=== PATIENT | female | born 1960 | race Caucasian/White ===

== ENCOUNTER 2022-02-16 06:42 | Inpatient (IN) ==
[2022-02-16] MEDS ORDERED: Morphine Sulfate 2 MG/ML SYRINGE IVP ONE ×2 (06:59→09:03)
[2022-02-16] MEDS ORDERED: 0.9 % Sodium Chloride 500 ML IVC ONE (06:59)
[2022-02-16] MEDS ORDERED: Ondansetron 4 MG/2 ML VIAL IVP ONE ×2 (06:59→09:03)
[2022-02-16] MEDS ORDERED: Isovue-370 500 ML BOTTLE IVP ONE ×4 (07:00→21:34)
[2022-02-16 07:24] LABS: Basophils % 0.3 %; Eosinophils % 0.1 %; Hematocrit 31.1 % (35.3-44.9); Hemoglobin 10.6 g/dL (11.5-15.4); Immature Granulocytes % 1.5 % (0-4); Lymphocytes % 7.9 %; Mean Corpuscular HGB Conc 34.1 g/dL (31.6-35.5); Mean Corpuscular Hemoglobin 31.5 pg (28.0-33.3); Mean Corpuscular Volume 92.3 fL (83.0-100.0); Mean Platelet Volume 8.5 fL (9.4-12.4); Monocytes % 6.3 %; Platelet Count 369 K/mcL (140-400); Red Blood Count 3.37 M/mcL (3.82-4.97); Red Cell Distribution Width 13.5 % (11.5-14.5); Segmented Neutrophils % 83.9 %; White Blood Count 15.8 K/mcL (4.3-11.1)
[2022-02-16 07:29] LABS: Basophils # 0.1 K/mcL (0.0-0.2); Lymphocytes # 1.3 K/mcL (0.6-4.6); Neutrophils # 13.3 K/mcL (1.6-8.9)
[2022-02-16 07:42] LABS: BUN/Creatinine Ratio 13 (6-26); Blood Urea Nitrogen 12 mg/dL (8-23); Calcium 8.6 mg/dL (8.6-10.3); Carbon Dioxide 23 mEq/L (23-29); Chloride 90 mEq/L (98-107); Creatine Kinase 88 Units/L (30-223); Glucose 139 mg/dL (70-105); Osmolality,Calculated 260 (280-300); Potassium 3.5 mEq/L (3.5-5.1); Sodium 124 mEq/L (136-145); eGFR For African Americans > 60 (> 60); eGFR For Non-African Americans > 60 (> 60)
[2022-02-16] MEDS ORDERED: 0.9 % Sodium Chloride 1,000 ML IVC ONE (08:27)
[2022-02-16 11:06] LABS: BUN/Creatinine Ratio 13 (6-26); Blood Urea Nitrogen 9 mg/dL (8-23); Calcium 7.8 mg/dL (8.6-10.3); Carbon Dioxide 21 mEq/L (23-29); Chloride 99 mEq/L (98-107); Glucose 126 mg/dL (70-105); Osmolality,Calculated 268 (280-300); Potassium 3.6 mEq/L (3.5-5.1); Sodium 129 mEq/L (136-145); eGFR For African Americans > 60 (> 60); eGFR For Non-African Americans > 60 (> 60)
[2022-02-16] MEDS ORDERED: Ibuprofen 800 MG TABLET PO PRN (11:18)
[2022-02-16 11:42] LABS: Ethanol < 10 mg/dL (Less than 10); Magnesium 1.7 mg/dL (1.6-2.6)
[2022-02-16] MEDS ORDERED: Nicotine 21 MG PATCH.TD24 TD SCH (12:45)
[2022-02-16 13:16] LABS: Adenovirus Not Detected (Not Detect); Coronavirus 229E Not Detected (Not Detect); Coronavirus HKU1 Not Detected (Not Detect); Coronavirus NL63 Not Detected (Not Detect); Coronavirus OC43 Not Detected (Not Detect); Human Metapneumovirus Not Detected (Not Detect); Human Rhinovirus/Enterovirus Not Detected (Not Detect); SARS-CoV-2 Not Detected (Not Detect)
[2022-02-16 13:17] LABS: Bordetella Pertussis Not Detected (Not Detect); Chlamydophila pneumoniae Not Detected (Not Detect); Influenza A Subtype 2009 H1 Not Detected (Not Detect); Influenza B Not Detected (Not Detect); Mycoplasma pneumoniae Not Detected (Not Detect); Parainfluenza Virus 1 Not Detected (Not Detect); Parainfluenza Virus 2 Not Detected (Not Detect); Parainfluenza Virus 3 Not Detected (Not Detect); Parainfluenza Virus 4 Not Detected (Not Detect); Respiratory Syncytial Virus Not Detected (Not Detect)
[2022-02-16] MEDS ORDERED: levoFLOXacin 750 MG/150 ML 750 MG/150 ML BAG IVPB SCH (15:15)
[2022-02-16] MEDS: Albuterol 2.5 MG/3 ML NEBULIZER IH SCH ×3 (16:51→19:56)
[2022-02-16 17:28] LABS: Bilirubin,Urine Negative (Negative); Blood,Urine Trace-lysed (Negative); Clarity,Urine Clear (Clear); Color,Urine Yellow (Yellow); Glucose,Urine (UA) Normal (Normal); Ketones,Urine Negative (Negative); Leukocyte Esterase,Urine Negative (Negative); Nitrite,Urine Negative (Negative); PH,Urine 6.5 pH Units (5.0-8.0); Protein,Urine Negative (Neg-Trace); Urobilinogen,Urine Normal (Normal)
[2022-02-16 17:35] LABS: RBC,Urine 0-3 per hpf (0-3); WBC,Urine 0-3 per hpf (0-3)
[2022-02-16] MEDS ORDERED: *HR* OxyCODONE/APAP 5/325 TABLET PO PRN (18:39)
[2022-02-16] MEDS ORDERED: traZODone 50 MG TABLET PO SCH (21:00)
[2022-02-16] MEDS ORDERED: *HR* Promethazine 25 MG/ML VIAL IM PRN (21:34)
[2022-02-16] MEDS ORDERED: *HR* HYDROcodone/Acet 5/325 mg TABLET PO PRN (21:34)
[2022-02-16] MEDS ORDERED: Calcitonin-Salmon, Synthetic 400 UNIT/2 ML VIAL IM SCH (21:34)
[2022-02-16] MEDS ORDERED: Naloxone 0.4 MG/ML INJ IVP PRN (21:34)
[2022-02-16] MEDS ORDERED: Ondansetron ODT 4 MG TAB.RAPDIS SL PRN (21:34)
[2022-02-16] MEDS ORDERED: Ergocalciferol (VIT D2) 50,000 UNIT (1.25MG) CAP PO SCH (21:34)
[2022-02-16] MEDS ORDERED: Ondansetron 4 MG/2 ML VIAL IVP PRN (21:34)
[2022-02-16] MEDS: traZODone 50 MG TABLET PO SCH (22:02)
[2022-02-17] MEDS: Albuterol 2.5 MG/3 ML NEBULIZER IH SCH ×6 (00:27→19:58)
[2022-02-17] MEDS: *HR* OxyCODONE/APAP 5/325 TABLET PO PRN ×5 (03:58→23:52)
[2022-02-17 04:39] LABS: Basophils % 0.3 %; Eosinophils % 0.2 %; Hematocrit 30.9 % (35.3-44.9); Hemoglobin 10.4 g/dL (11.5-15.4); Immature Granulocytes % 0.5 % (0-4); Lymphocytes # 1.2 K/mcL (0.6-4.6); Lymphocytes % 10.2 %; Mean Corpuscular HGB Conc 33.7 g/dL (31.6-35.5); Mean Corpuscular Hemoglobin 31.7 pg (28.0-33.3); Mean Corpuscular Volume 94.2 fL (83.0-100.0); Mean Platelet Volume 8.4 fL (9.4-12.4); Monocytes # 0.8 K/mcL (0.0-1.3); Monocytes % 7.1 %; Neutrophils # 9.6 K/mcL (1.6-8.9); Platelet Count 342 K/mcL (140-400); Red Blood Count 3.28 M/mcL (3.82-4.97); Red Cell Distribution Width 13.7 % (11.5-14.5); Segmented Neutrophils % 81.7 %; White Blood Count 11.7 K/mcL (4.3-11.1)
[2022-02-17 04:55] LABS: Alanine Aminotransferase 10 Units/L (7-52); Albumin 3.5 g/dL (3.5-5.7); Albumin/Globulin Ratio 1.1 (1.1-2.2); Alkaline Phosphatase 64 Units/L (34-104); Aspartate Amino Transferase 10 Units/L (13-39); BUN/Creatinine Ratio 12 (6-26); Bilirubin,Total 0.3 mg/dL (0.3-1.0); Blood Urea Nitrogen 7 mg/dL (8-23); Calcium 8.6 mg/dL (8.6-10.3); Carbon Dioxide 24 mEq/L (23-29); Chloride 102 mEq/L (98-107); Globulin 3.2 g/dL (2.4-3.5); Glucose 122 mg/dL (70-105); Osmolality,Calculated 275 (280-300); Potassium 4.3 mEq/L (3.5-5.1); Sodium 133 mEq/L (136-145); Total Protein 6.7 g/dL (6.4-8.9); eGFR For African Americans > 60 (> 60); eGFR For Non-African Americans > 60 (> 60)
[2022-02-17 05:13] LABS: Immature Reticulocyte % 12.9 % (11.0-38.0); Retculocyte # 0.05 M/mcL (0.05-0.10); Reticulocyte % 1.6 % (1.6-2.8)
[2022-02-17] MEDS: *HR* Enoxaparin 40 MG/0.4 ML SYRINGE SQ SCH (05:43)
[2022-02-17] MEDS ORDERED: *HR* Enoxaparin 40 MG/0.4 ML SYRINGE SQ SCH (06:00)
[2022-02-17] MEDS: Fluticasone Propionate Nasal 50 MCG/SPRAY BOTTLE NS SCH (08:21)
[2022-02-17] MEDS: Nicotine 21 MG PATCH.TD24 TD SCH (08:21)
[2022-02-17] MEDS: Cyanocobalamin (B-12) 1,000 MCG TABLET PO SCH (08:21)
[2022-02-17] MEDS: Loratadine 10 MG TABLET PO SCH (08:21)
[2022-02-17] MEDS: levoFLOXacin 750 MG/150 ML 750 MG/150 ML BAG IVPB SCH (08:22)
[2022-02-17] MEDS: lisinopriL 20 MG TABLET PO SCH (08:22)
[2022-02-17] MEDS: Calcitonin-Salmon, Synthetic 400 UNIT/2 ML VIAL SQ SCH ×2 (08:23→11:33)
[2022-02-17] MEDS ORDERED: Cholecalciferol (D-3) 1,000 UNIT (25MCG) TABLET PO SCH (09:00)
[2022-02-17] MEDS ORDERED: Fluticasone Propionate Nasal 50 MCG/SPRAY BOTTLE NS SCH (09:00)
[2022-02-17] MEDS ORDERED: lisinopriL 20 MG TABLET PO SCH (09:00)
[2022-02-17] MEDS ORDERED: Calcitonin-Salmon, Synthetic 400 UNIT/2 ML VIAL SQ SCH (09:00)
[2022-02-17] MEDS ORDERED: Loratadine 10 MG TABLET PO SCH (09:00)
[2022-02-17] MEDS ORDERED: NON-FORMULARY MEDICATION 1 EACH EACH (Fluoxetine Hcl [Fluoxetine Hcl] 40 MG Capsule) PO SCH (09:00)
[2022-02-17] MEDS ORDERED: Cyanocobalamin (B-12) 1,000 MCG TABLET PO SCH (09:00)
[2022-02-17 11:44] LABS: % Iron Saturation 3 % (15-50); Iron 12 mcg/dL (50-170); Transferrin 246 mg/dL (203-362)
[2022-02-17] MEDS ORDERED: Morphine Sulfate 2 MG/ML SYRINGE IVP ONE (14:44)
[2022-02-17] MEDS ORDERED: Morphine Sulfate 2 MG/ML SYRINGE IVP PRN (14:56)
[2022-02-17] MEDS: Ibuprofen 800 MG TABLET PO PRN (19:27)
[2022-02-17] MEDS: Melatonin 3 MG TABLET PO PRN (19:27)
[2022-02-17] MEDS: traZODone 50 MG TABLET PO SCH (19:27)
[2022-02-17] MEDS ORDERED: Perflutren Lipid Microsphere 1.3 ML in 0.9 % Sodium Chloride 8.7 ML IVP PRN (21:22)
[2022-02-18] MEDS: Albuterol 2.5 MG/3 ML NEBULIZER IH SCH ×7 (00:01→23:31)
[2022-02-18] MEDS: *HR* HYDROcodone/Acet 7.5/325 mg TABLET PO PRN ×2 (05:02→19:29)
[2022-02-18] MEDS: *HR* Enoxaparin 40 MG/0.4 ML SYRINGE SQ SCH (05:03)
[2022-02-18] MEDS: Nicotine 21 MG PATCH.TD24 TD SCH (08:34)
[2022-02-18] MEDS: levoFLOXacin 750 MG/150 ML 750 MG/150 ML BAG IVPB SCH (08:35)
[2022-02-18] MEDS: lisinopriL 20 MG TABLET PO SCH (08:36)
[2022-02-18] MEDS: Cyanocobalamin (B-12) 1,000 MCG TABLET PO SCH (08:36)
[2022-02-18] MEDS: *HR* OxyCODONE/APAP 5/325 TABLET PO PRN (08:36)
[2022-02-18] MEDS: Loratadine 10 MG TABLET PO SCH (08:36)
[2022-02-18] MEDS: Fluticasone Propionate Nasal 50 MCG/SPRAY BOTTLE NS SCH (08:37)
[2022-02-18 09:59] LABS: Basophils # 0.1 K/mcL (0.0-0.2); Basophils % 0.5 %; Eosinophils % 0.4 %; Hematocrit 30.1 % (35.3-44.9); Immature Granulocytes % 0.3 % (0-4); Lymphocytes # 1.4 K/mcL (0.6-4.6); Lymphocytes % 14.5 %; Mean Corpuscular HGB Conc 33.2 g/dL (31.6-35.5); Mean Corpuscular Hemoglobin 31.2 pg (28.0-33.3); Mean Corpuscular Volume 93.8 fL (83.0-100.0); Mean Platelet Volume 8.5 fL (9.4-12.4); Monocytes # 0.7 K/mcL (0.0-1.3); Monocytes % 7.4 %; Neutrophils # 7.2 K/mcL (1.6-8.9); Platelet Count 349 K/mcL (140-400); Red Blood Count 3.21 M/mcL (3.82-4.97); Red Cell Distribution Width 13.5 % (11.5-14.5); Segmented Neutrophils % 76.9 %; White Blood Count 9.4 K/mcL (4.3-11.1)
[2022-02-18] MEDS: Lactulose Oral Soln 20 GM/30 ML UDC PO PRN (10:12)
[2022-02-18] MEDS: tiZANidine 4 MG TABLET PO PRN ×2 (10:12→19:29)
[2022-02-18 10:17] LABS: BUN/Creatinine Ratio 7 (6-26); Blood Urea Nitrogen 3 mg/dL (8-23); Calcium 8.1 mg/dL (8.6-10.3); Carbon Dioxide 27 mEq/L (23-29); Chloride 97 mEq/L (98-107); Glucose 112 mg/dL (70-105); Osmolality,Calculated 269 (280-300); Potassium 3.4 mEq/L (3.5-5.1); Sodium 131 mEq/L (136-145); eGFR For African Americans > 60 (> 60); eGFR For Non-African Americans > 60 (> 60)
[2022-02-18] MEDS: Ibuprofen 800 MG TABLET PO PRN (14:17)
[2022-02-18] MEDS: Calcitonin-Salmon, Synthetic 400 UNIT/2 ML VIAL SQ SCH (14:19)
[2022-02-18] MEDS: Melatonin 3 MG TABLET PO PRN (19:29)
[2022-02-18] MEDS: traZODone 50 MG TABLET PO SCH (19:29)
[2022-02-19] MEDS: Albuterol 2.5 MG/3 ML NEBULIZER IH SCH ×5 (04:42→21:32)
[2022-02-19] MEDS: *HR* HYDROcodone/Acet 7.5/325 mg TABLET PO PRN ×3 (05:23→20:13)
[2022-02-19] MEDS: *HR* Enoxaparin 40 MG/0.4 ML SYRINGE SQ SCH (05:25)
[2022-02-19 05:40] LABS: Basophils # 0.1 K/mcL (0.0-0.2); Basophils % 0.7 %; Eosinophils # 0.1 K/mcL (0.0-0.6); Eosinophils % 0.9 %; Hematocrit 29.5 % (35.3-44.9); Hemoglobin 9.8 g/dL (11.5-15.4); Immature Granulocytes % 0.4 % (0-4); Lymphocytes # 1.5 K/mcL (0.6-4.6); Lymphocytes % 19.8 %; Mean Corpuscular HGB Conc 33.2 g/dL (31.6-35.5); Mean Corpuscular Hemoglobin 30.8 pg (28.0-33.3); Mean Corpuscular Volume 92.8 fL (83.0-100.0); Mean Platelet Volume 8.4 fL (9.4-12.4); Monocytes # 0.8 K/mcL (0.0-1.3); Monocytes % 10.3 %; Neutrophils # 5.1 K/mcL (1.6-8.9); Platelet Count 360 K/mcL (140-400); Red Blood Count 3.18 M/mcL (3.82-4.97); Red Cell Distribution Width 13.3 % (11.5-14.5); Segmented Neutrophils % 67.9 %; White Blood Count 7.4 K/mcL (4.3-11.1)
[2022-02-19 05:54] LABS: BUN/Creatinine Ratio 10 (6-26); Blood Urea Nitrogen 4 mg/dL (8-23); Calcium 8.5 mg/dL (8.6-10.3); Carbon Dioxide 27 mEq/L (23-29); Chloride 100 mEq/L (98-107); Glucose 92 mg/dL (70-105); Osmolality,Calculated 275 (280-300); Potassium 3.5 mEq/L (3.5-5.1); Sodium 134 mEq/L (136-145); eGFR For African Americans > 60 (> 60); eGFR For Non-African Americans > 60 (> 60)
[2022-02-19] MEDS: Nicotine 21 MG PATCH.TD24 TD SCH (07:50)
[2022-02-19] MEDS: levoFLOXacin 750 MG/150 ML 750 MG/150 ML BAG IVPB SCH (07:50)
[2022-02-19] MEDS: lisinopriL 20 MG TABLET PO SCH (07:51)
[2022-02-19] MEDS: tiZANidine 4 MG TABLET PO PRN ×3 (07:51→20:14)
[2022-02-19] MEDS: Cyanocobalamin (B-12) 1,000 MCG TABLET PO SCH (07:51)
[2022-02-19] MEDS: Ibuprofen 800 MG TABLET PO PRN (07:51)
[2022-02-19] MEDS: Loratadine 10 MG TABLET PO SCH (07:51)
[2022-02-19] MEDS: Lactulose Oral Soln 20 GM/30 ML UDC PO PRN (08:04)
[2022-02-19] MEDS: Fluticasone Propionate Nasal 50 MCG/SPRAY BOTTLE NS SCH (09:52)
[2022-02-19] MEDS: Calcitonin-Salmon, Synthetic 400 UNIT/2 ML VIAL SQ SCH (15:58)
[2022-02-19] MEDS: Melatonin 3 MG TABLET PO PRN (20:13)
[2022-02-19] MEDS: traZODone 50 MG TABLET PO SCH (20:14)
[2022-02-20] MEDS: Albuterol 2.5 MG/3 ML NEBULIZER IH SCH ×2 (00:48→04:23)
[2022-02-20] MEDS: *HR* HYDROcodone/Acet 7.5/325 mg TABLET PO PRN ×4 (04:48→20:52)
[2022-02-20] MEDS: tiZANidine 4 MG TABLET PO PRN ×2 (04:49→20:52)
[2022-02-20] MEDS: *HR* Enoxaparin 40 MG/0.4 ML SYRINGE SQ SCH (04:51)
[2022-02-20 04:52] LABS: Basophils # 0.1 K/mcL (0.0-0.2); Basophils % 0.8 %; Eosinophils # 0.1 K/mcL (0.0-0.6); Eosinophils % 1.6 %; Hemoglobin 10.4 g/dL (11.5-15.4); Immature Granulocytes % 0.6 % (0-4); Lymphocytes # 2.1 K/mcL (0.6-4.6); Lymphocytes % 32.8 %; Mean Corpuscular HGB Conc 33.5 g/dL (31.6-35.5); Mean Corpuscular Hemoglobin 31.4 pg (28.0-33.3); Mean Corpuscular Volume 93.7 fL (83.0-100.0); Mean Platelet Volume 8.4 fL (9.4-12.4); Monocytes # 0.8 K/mcL (0.0-1.3); Monocytes % 12.3 %; Neutrophils # 3.3 K/mcL (1.6-8.9); Platelet Count 359 K/mcL (140-400); Red Blood Count 3.31 M/mcL (3.82-4.97); Red Cell Distribution Width 13.3 % (11.5-14.5); Segmented Neutrophils % 51.9 %; White Blood Count 6.3 K/mcL (4.3-11.1)
[2022-02-20 05:03] LABS: Platelet Estimate Normal (Normal)
[2022-02-20 05:04] LABS: BUN/Creatinine Ratio 20 (6-26); Blood Urea Nitrogen 10 mg/dL (8-23); Calcium 8.7 mg/dL (8.6-10.3); Carbon Dioxide 28 mEq/L (23-29); Chloride 99 mEq/L (98-107); Glucose 86 mg/dL (70-105); Osmolality,Calculated 280 (280-300); Potassium 3.9 mEq/L (3.5-5.1); Sodium 136 mEq/L (136-145); eGFR For African Americans > 60 (> 60); eGFR For Non-African Americans > 60 (> 60)
[2022-02-20] MEDS ORDERED: Albuterol 2.5 MG/3 ML NEBULIZER IH PRN (06:13)
[2022-02-20] MEDS: lisinopriL 20 MG TABLET PO SCH (09:49)
[2022-02-20] MEDS: Cyanocobalamin (B-12) 1,000 MCG TABLET PO SCH (09:49)
[2022-02-20] MEDS: Loratadine 10 MG TABLET PO SCH (09:49)
[2022-02-20] MEDS: levoFLOXacin 750 MG/150 ML 750 MG/150 ML BAG IVPB SCH (09:50)
[2022-02-20] MEDS: Nicotine 21 MG PATCH.TD24 TD SCH (09:50)
[2022-02-20] MEDS: Fluticasone Propionate Nasal 50 MCG/SPRAY BOTTLE NS SCH (09:50)
[2022-02-20] MEDS: Lactulose Oral Soln 20 GM/30 ML UDC PO PRN (09:51)
[2022-02-20] MEDS: Calcitonin-Salmon, Synthetic 400 UNIT/2 ML VIAL SQ SCH (09:54)
[2022-02-20] MEDS: Ondansetron ODT 4 MG TAB.RAPDIS SL PRN (11:41)
[2022-02-20] MEDS: traZODone 50 MG TABLET PO SCH (20:51)
[2022-02-20] MEDS: Melatonin 3 MG TABLET PO PRN (20:52)
[2022-02-21] MEDS: *HR* Enoxaparin 40 MG/0.4 ML SYRINGE SQ SCH (04:47)
[2022-02-21] MEDS: tiZANidine 4 MG TABLET PO PRN (04:47)
[2022-02-21] MEDS: *HR* HYDROcodone/Acet 7.5/325 mg TABLET PO PRN ×3 (04:47→21:13)
[2022-02-21] MEDS ORDERED: *HR* LORazepam 1 MG TABLET PO ONE (07:52)
[2022-02-21] MEDS: Nicotine 21 MG PATCH.TD24 TD SCH (09:46)
[2022-02-21] MEDS: Cyanocobalamin (B-12) 1,000 MCG TABLET PO SCH (09:46)
[2022-02-21] MEDS: levoFLOXacin 750 MG/150 ML 750 MG/150 ML BAG IVPB SCH (09:47)
[2022-02-21] MEDS: Loratadine 10 MG TABLET PO SCH (09:47)
[2022-02-21] MEDS: Fluticasone Propionate Nasal 50 MCG/SPRAY BOTTLE NS SCH (09:47)
[2022-02-21] MEDS: lisinopriL 20 MG TABLET PO SCH (09:47)
[2022-02-21] MEDS: Calcitonin-Salmon, Synthetic 400 UNIT/2 ML VIAL SQ SCH (09:50)
[2022-02-21] MEDS: Ondansetron ODT 4 MG TAB.RAPDIS SL PRN (11:24)
[2022-02-21] MEDS: traZODone 50 MG TABLET PO SCH (21:13)
[2022-02-21] MEDS: Melatonin 3 MG TABLET PO PRN (21:13)
[2022-02-22] MEDS: *HR* HYDROcodone/Acet 7.5/325 mg TABLET PO PRN ×2 (04:27→13:22)
[2022-02-22] MEDS: *HR* Enoxaparin 40 MG/0.4 ML SYRINGE SQ SCH (04:28)
[2022-02-22 05:45] LABS: Basophils # 0.1 K/mcL (0.0-0.2); Basophils % 0.8 %; Eosinophils # 0.1 K/mcL (0.0-0.6); Eosinophils % 0.8 %; Hematocrit 32.4 % (35.3-44.9); Hemoglobin 10.8 g/dL (11.5-15.4); Immature Granulocytes % 0.7 % (0-4); Lymphocytes # 2.1 K/mcL (0.6-4.6); Lymphocytes % 28.6 %; Mean Corpuscular HGB Conc 33.3 g/dL (31.6-35.5); Mean Corpuscular Hemoglobin 30.9 pg (28.0-33.3); Mean Corpuscular Volume 92.8 fL (83.0-100.0); Mean Platelet Volume 8.2 fL (9.4-12.4); Monocytes # 0.6 K/mcL (0.0-1.3); Monocytes % 7.9 %; Neutrophils # 4.4 K/mcL (1.6-8.9); Platelet Count 328 K/mcL (140-400); Red Blood Count 3.49 M/mcL (3.82-4.97); Red Cell Distribution Width 13.2 % (11.5-14.5); Segmented Neutrophils % 61.2 %; White Blood Count 7.2 K/mcL (4.3-11.1)
[2022-02-22 06:02] LABS: BUN/Creatinine Ratio 22 (6-26); Blood Urea Nitrogen 12 mg/dL (8-23); Calcium 8.9 mg/dL (8.6-10.3); Carbon Dioxide 26 mEq/L (23-29); Chloride 94 mEq/L (98-107); Glucose 85 mg/dL (70-105); Osmolality,Calculated 273 (280-300); Potassium 3.4 mEq/L (3.5-5.1); Sodium 132 mEq/L (136-145); eGFR For African Americans > 60 (> 60); eGFR For Non-African Americans > 60 (> 60)
[2022-02-22 06:48] VITALS: PULSE 86
[2022-02-22] MEDS: levoFLOXacin 750 MG/150 ML 750 MG/150 ML BAG IVPB SCH (08:11)
[2022-02-22] MEDS: Nicotine 21 MG PATCH.TD24 TD SCH (08:11)
[2022-02-22] MEDS: Fluticasone Propionate Nasal 50 MCG/SPRAY BOTTLE NS SCH (08:11)
[2022-02-22] MEDS: lisinopriL 20 MG TABLET PO SCH (08:12)
[2022-02-22] MEDS: tiZANidine 4 MG TABLET PO PRN (08:12)
[2022-02-22] MEDS: Cyanocobalamin (B-12) 1,000 MCG TABLET PO SCH (08:12)
[2022-02-22] MEDS: Ibuprofen 800 MG TABLET PO PRN (08:12)
[2022-02-22] MEDS: Loratadine 10 MG TABLET PO SCH (08:12)
[2022-02-22] MEDS: Calcitonin-Salmon, Synthetic 400 UNIT/2 ML VIAL SQ SCH (08:18)
[2022-02-22] MEDS: Ondansetron ODT 4 MG TAB.RAPDIS SL PRN (09:45)
[2022-02-22] MEDS ORDERED: Ondansetron 4 MG/2 ML VIAL IVP ONE (10:01)
[2022-02-22 11:09] VITALS: BP 128/77; TEMP 98.2
[2022-02-22 11:35] VITALS: RESP 18; O2SAT 93
== END 2022-02-22 15:09 | disposition other institution (70) | DRG 193 ==
LOC: EMEROOGRE 06:42 → INPGRE 06:42
PROVIDERS: ADMIT Family Medicine; ATTEND Family Medicine

== ENCOUNTER 2022-02-22 11:54 | Inpatient (IN) ==
[2022-02-22] MEDS ORDERED: Ondansetron ODT 4 MG TAB.RAPDIS SL PRN (15:28)
[2022-02-22] MEDS ORDERED: Lactulose Oral Soln 20 GM/30 ML UDC PO PRN (15:30)
[2022-02-22] MEDS ORDERED: Ergocalciferol (VIT D2) 50,000 UNIT (1.25MG) CAP PO SCH (15:45)
[2022-02-22] MEDS ORDERED: Albuterol 2.5 MG/3 ML NEBULIZER IH SCH (16:00)
[2022-02-22] MEDS ORDERED: Ibuprofen 800 MG TABLET PO SCH (16:00)
[2022-02-22] MEDS ORDERED: Albuterol 2.5 MG/3 ML NEBULIZER IH PRN (16:50)
[2022-02-22] MEDS: *HR* HYDROcodone/Acet 7.5/325 mg TABLET PO PRN ×2 (17:53→22:02)
[2022-02-22] MEDS: tiZANidine 4 MG TABLET PO PRN (19:35)
[2022-02-22] MEDS: Melatonin 3 MG TABLET PO PRN (21:59)
[2022-02-23] MEDS: *HR* HYDROcodone/Acet 7.5/325 mg TABLET PO PRN ×2 (04:34→15:20)
[2022-02-23] MEDS: *HR* Enoxaparin 40 MG/0.4 ML SYRINGE SQ SCH (06:18)
[2022-02-23] MEDS: Nicotine 21 MG PATCH.TD24 TD SCH (08:48)
[2022-02-23] MEDS: Loratadine 10 MG TABLET PO SCH (08:49)
[2022-02-23] MEDS: Cyanocobalamin (B-12) 1,000 MCG TABLET PO SCH (08:49)
[2022-02-23] MEDS: Ibuprofen 800 MG TABLET PO PRN ×2 (08:49→21:02)
[2022-02-23] MEDS: tiZANidine 4 MG TABLET PO PRN ×2 (08:49→17:12)
[2022-02-23] MEDS: lisinopriL 20 MG TABLET PO SCH (08:49)
[2022-02-23] MEDS: Calcitonin-Salmon, Synthetic 400 UNIT/2 ML VIAL SQ SCH (08:52)
[2022-02-23] MEDS: Fluticasone Propionate Nasal 50 MCG/SPRAY BOTTLE NS SCH (08:52)
[2022-02-23] MEDS ORDERED: NON-FORMULARY MEDICATION 1 EACH EACH (Cholecalciferol (Vitamin D3) [Vitamin D3] 125 MCG Ca PO SCH (09:00)
[2022-02-23] MEDS ORDERED: FLUoxetine 20 MG CAPSULE PO SCH (09:00)
[2022-02-23] MEDS ORDERED: levoFLOXacin 750 MG/150 ML 750 MG/150 ML BAG IVPB SCH (09:00)
[2022-02-23] MEDS ORDERED: traZODone 50 MG TABLET PO SCH (09:00)
[2022-02-23] MEDS: Sucralfate 1 GM TABLET PO SCH ×4 (12:20→21:02)
[2022-02-23] MEDS: traZODone 50 MG TABLET PO SCH (21:04)
[2022-02-24] MEDS: *HR* HYDROcodone/Acet 7.5/325 mg TABLET PO PRN ×2 (03:25→21:00)
[2022-02-24 04:26] LABS: Basophils % 0.5 %; Eosinophils % 0.2 %; Hemoglobin 12.2 g/dL (11.5-15.4); Immature Granulocytes % 0.6 % (0-4); Lymphocytes # 0.9 K/mcL (0.6-4.6); Lymphocytes % 13.5 %; Mean Corpuscular HGB Conc 34.9 g/dL (31.6-35.5); Mean Corpuscular Hemoglobin 31.1 pg (28.0-33.3); Mean Corpuscular Volume 89.3 fL (83.0-100.0); Mean Platelet Volume 8.5 fL (9.4-12.4); Monocytes # 0.1 K/mcL (0.0-1.3); Monocytes % 1.4 %; Neutrophils # 5.4 K/mcL (1.6-8.9); Platelet Count 339 K/mcL (140-400); Red Blood Count 3.92 M/mcL (3.82-4.97); Red Cell Distribution Width 13.1 % (11.5-14.5); Segmented Neutrophils % 83.8 %; White Blood Count 6.5 K/mcL (4.3-11.1)
[2022-02-24 04:43] LABS: Alanine Aminotransferase 8 Units/L (7-52); Albumin 3.7 g/dL (3.5-5.7); Albumin/Globulin Ratio 1.1 (1.1-2.2); Alkaline Phosphatase 59 Units/L (34-104); Aspartate Amino Transferase 10 Units/L (13-39); BUN/Creatinine Ratio 29 (6-26); Bilirubin,Direct 0.2 mg/dL (0.0-0.2); Bilirubin,Indirect 0.3 mg/dL (0.0-1.0); Bilirubin,Total 0.5 mg/dL (0.3-1.0); Blood Urea Nitrogen 17 mg/dL (8-23); Calcium 9.1 mg/dL (8.6-10.3); Carbon Dioxide 22 mEq/L (23-29); Chloride 94 mEq/L (98-107); Globulin 3.5 g/dL (2.4-3.5); Glucose 166 mg/dL (70-105); Osmolality,Calculated 275 (280-300); Potassium 3.6 mEq/L (3.5-5.1); Sodium 130 mEq/L (136-145); Total Protein 7.2 g/dL (6.4-8.9); eGFR For African Americans > 60 (> 60); eGFR For Non-African Americans > 60 (> 60)
[2022-02-24] MEDS: *HR* Enoxaparin 40 MG/0.4 ML SYRINGE SQ SCH (05:07)
[2022-02-24] MEDS: Sucralfate 1 GM TABLET PO SCH ×4 (06:38→20:59)
[2022-02-24] MEDS: lisinopriL 20 MG TABLET PO SCH (08:11)
[2022-02-24] MEDS: Loratadine 10 MG TABLET PO SCH (08:11)
[2022-02-24] MEDS: tiZANidine 4 MG TABLET PO PRN ×2 (08:11→21:01)
[2022-02-24] MEDS: Nicotine 21 MG PATCH.TD24 TD SCH (08:12)
[2022-02-24] MEDS: Calcitonin-Salmon, Synthetic 400 UNIT/2 ML VIAL SQ SCH (08:12)
[2022-02-24] MEDS: Fluticasone Propionate Nasal 50 MCG/SPRAY BOTTLE NS SCH (08:13)
[2022-02-24] MEDS: Ibuprofen 800 MG TABLET PO PRN (12:04)
[2022-02-24] MEDS: Cyanocobalamin (B-12) 1,000 MCG TABLET PO SCH (12:06)
[2022-02-24] MEDS: Melatonin 3 MG TABLET PO PRN (21:00)
[2022-02-24] MEDS: traZODone 50 MG TABLET PO SCH (21:01)
[2022-02-25] MEDS: tiZANidine 4 MG TABLET PO PRN ×2 (01:55→21:09)
[2022-02-25] MEDS: *HR* HYDROcodone/Acet 7.5/325 mg TABLET PO PRN ×3 (04:49→21:07)
[2022-02-25] MEDS: *HR* Enoxaparin 40 MG/0.4 ML SYRINGE SQ SCH (04:50)
[2022-02-25] MEDS: Fluticasone Propionate Nasal 50 MCG/SPRAY BOTTLE NS SCH (08:15)
[2022-02-25] MEDS: Nicotine 21 MG PATCH.TD24 TD SCH (08:16)
[2022-02-25] MEDS: Cyanocobalamin (B-12) 1,000 MCG TABLET PO SCH (08:17)
[2022-02-25] MEDS: Loratadine 10 MG TABLET PO SCH (08:17)
[2022-02-25] MEDS: Sucralfate 1 GM TABLET PO SCH ×4 (08:17→21:08)
[2022-02-25] MEDS: Calcitonin-Salmon, Synthetic 400 UNIT/2 ML VIAL SQ SCH (10:08)
[2022-02-25] MEDS: Melatonin 3 MG TABLET PO PRN (21:09)
[2022-02-26] MEDS: traZODone 50 MG TABLET PO SCH ×2 (02:35→23:16)
[2022-02-26] MEDS: tiZANidine 4 MG TABLET PO PRN ×4 (02:47→21:31)
[2022-02-26] MEDS: *HR* Enoxaparin 40 MG/0.4 ML SYRINGE SQ SCH (06:15)
[2022-02-26] MEDS: *HR* HYDROcodone/Acet 7.5/325 mg TABLET PO PRN ×3 (06:15→23:10)
[2022-02-26] MEDS: Sucralfate 1 GM TABLET PO SCH ×4 (06:16→21:33)
[2022-02-26] MEDS: Cyanocobalamin (B-12) 1,000 MCG TABLET PO SCH (08:18)
[2022-02-26] MEDS: Loratadine 10 MG TABLET PO SCH (08:18)
[2022-02-26] MEDS: Calcitonin-Salmon, Synthetic 400 UNIT/2 ML VIAL SQ SCH (08:19)
[2022-02-26] MEDS: Fluticasone Propionate Nasal 50 MCG/SPRAY BOTTLE NS SCH (08:19)
[2022-02-26] MEDS: Nicotine 21 MG PATCH.TD24 TD SCH (08:20)
[2022-02-26] MEDS: Melatonin 3 MG TABLET PO PRN (21:33)
[2022-02-27] MEDS: traZODone 50 MG TABLET PO SCH (01:22)
[2022-02-27] MEDS: tiZANidine 4 MG TABLET PO PRN (01:23)
[2022-02-27] MEDS: Sucralfate 1 GM TABLET PO SCH (06:27)
[2022-02-27] MEDS: *HR* HYDROcodone/Acet 7.5/325 mg TABLET PO PRN ×2 (06:27→13:22)
[2022-02-27] MEDS: *HR* Enoxaparin 40 MG/0.4 ML SYRINGE SQ SCH (06:27)
[2022-02-27 07:17] VITALS: O2SAT 95
[2022-02-27] MEDS: Cyanocobalamin (B-12) 1,000 MCG TABLET PO SCH (08:18)
[2022-02-27] MEDS: Nicotine 21 MG PATCH.TD24 TD SCH (08:18)
[2022-02-27] MEDS: Loratadine 10 MG TABLET PO SCH (08:18)
[2022-02-27] MEDS: Calcitonin-Salmon, Synthetic 400 UNIT/2 ML VIAL SQ SCH (08:27)
[2022-02-27] MEDS: Fluticasone Propionate Nasal 50 MCG/SPRAY BOTTLE NS SCH (08:27)
[2022-02-27 11:14] VITALS: BP 118/73; PULSE 89; RESP 16; TEMP 98.1
== END 2022-02-27 14:50 | disposition home health service (06) | DRG 193 ==
LOC: INPGRE 15:09
PROVIDERS: ADMIT Family Medicine; ATTEND Family Medicine